=== PATIENT | female | born 1950 | race Caucasian/White ===

== ENCOUNTER 2016-07-21 17:55 | Emergency (ER) | payer OTHER ==
--- NOTE | 2016-07-21 18:29 | EKG Report ---
Test Performed on : 07/21/2016 6:04:50 PM Test Reason : CHEST PRESSURE Blood Pressure : / mmHG Vent. Rate : 061 BPM Atrial Rate : 061 BPM P-R Int : 156 ms QRS Dur : 096 ms QT Int : 448 ms P-R-T Axes : 072 034 051 degrees QTc Int : 450 ms Normal sinus rhythm. Normal ECG No previous ECGs available Unconfirmed Result
--- NOTE | 2016-07-21 18:35 | PROVIDER DOCUMENTATION ---
HPI-Chest Pain <Gypsy Hackett - Last Filed: 07/21/16 19:09> - General Source: patient - History of Present Illness-CP Location: reports: substernal Chest Pain Radiation: reports: no radiation Quality of Pain: reports: pressure Severity in ED: moderate Onset/Duration: 2 days ago Timing: still present, changing over time Context/Activities at Onset: reports: light activity Modifying Factors: worse with: exercise Associated Symptoms: reports: nausea, shortness of breath. denies: dizziness, edema, fever/chills, heartburn, vomiting Nitro Today/Relief: no nitro taken today Aspirin Treatment Today: no aspirin today Prior Chest Pain/Cardiac Workup: reports: cardiolite scan Similar Symptoms Previously?: Yes Recently Seen Here or By Another Healthcare Provider: No <Elder De Anda - Last Filed: 07/21/16 22:47> - General Chief Complaint: Chest Pain Stated Complaint: CHEST PAIN Time Seen by Provider: 07/21/16 18:30 Allergies/Adverse Reactions: Patient Allergies Allergy/AdvReac Type Severity Reaction Status Date / Time Penicillins AdvReac Unknown Verified 07/21/16 18:06 Sulfa (Sulfonamide AdvReac Unknown Verified 07/21/16 18:06 Antibiotics) - History of Present Illness-CP Nature of Presenting Problem: developed retrosternal chest pressure no pain could not get breath no sweating some nausea slept most of the day .went to bed with sx less in am then intensified .had several yrs ago gb gone hx duodenal ulcer sp appy s/p hysterectomy and bso (Elder De Anda) Review of Systems - Adult - REVIEW OF SYSTEMS - ADULT Constitutional: reports: no symptoms reported Eyes: reports: no symptoms reported Ears, Nose, Mouth & Throat: reports: no symptoms reported Cardiovascular: reports: see HPI. denies: edema, heart murmur, irregular heart rate, palpitations, syncope Respiratory: reports: no symptoms reported, shortness of breath. denies: chronic cough, cough, dyspnea on exertion, hemoptysis, pleurisy, wheezing Gastrointestinal: reports: nausea. denies: abdominal pain, constipation, diarrhea, difficulty swallowing, frequent heartburn, rectal bleeding, vomiting Genitourinary: reports: no symptoms reported Musculoskeletal: reports: no symptoms reported Integumentary: reports: no symptoms reported Neurological: reports: no symptoms reported. denies: dizziness/vertigo, headache/migraines, numbness, paresthesia Endocrine: reports: cold intolerance Hematologic/Lymphatic: denies: blood clots, easy bruising, low blood count Allergic/Immunologic: reports: asthma. denies: eczema, hay fever <Elder De Anda - Last Filed: 07/21/16 22:47> Past History - Adult - PAST MEDICAL HISTORY-ADULT Review of Records: reports: Nursing Assessment Review, Medications Reviewed, Social history reviewed & non-contributory. Major Childhood Illnesses: reports: denies history Cardiovascular: reports: pericardial disease. denies: A-Fib, arrhythmia, HTN, heart valve problem Respiratory: reports: asthma, sleep apnea Gastrointestinal: reports: hepatitis, liver disease, pancreatitis. denies: cholelithiasis, Crohn's, diverticulosis Genitourinary: denies: kidney disease, kidney stones, polycystic kidney disease Musculoskeletal: reports: denies history Neurological: reports: denies history Psychiatric: reports: denies history Endocrine/Immune: reports: thyroid disorder <Elder De Anda - Last Filed: 07/21/16 22:47> Physical Exam-General - CONSTITUTIONAL General Appearance: appears well, alert - EYES Eyes: PERRL/EOMI - HEAD, EARS, NOSE, MOUTH & THROAT HENMT: normocephalic/atraumatic - NECK Neck: full range of motion, supple - RESPIRATORY Respiratory: lungs clear - CARDIOVASCULAR Cardiovascular: regular rate, rhythm - GASTROINTESTINAL (ABDOMEN) Abdominal Exam: soft - LYMPHATIC Lymphatic: no adenopathy - MUSCULOSKELETAL Back Exam: normal inspection Extremity: normal range of motion <Elder De Anda - Last Filed: 07/21/16 22:47> Progress - EKG 1 Time of EKG reading by physician:: 18:04 EKG Read and Signed by:: Elder De Anda EKG Interpretation (*Must complete 3 of following elements*): Normal Rate: 61 Rhythm: NSR [place]: normal <Gypsy Hackett - Last Filed: 07/21/16 19:09> Departure <Gypsy Hackett - Last Filed: 07/21/16 19:09> - Departure Time of Disposition Order: 22:46 Certified Medical Emergency: Emergent <Elder De Anda - Last Filed: 07/21/16 22:47> - Departure DIAGNOSIS: Atypical chest pain Disposition: HOME 01 Condition: Stable Additional Instructions: ED Follow Up Instructions: You have been treated by a care provider in the Emergency Department. These instructions are being provided to you so you can have an understanding of how to care for yourself upon discharge. Upon discharge from the Emergency Department, you are responsible for making arrangements for follow-up care by a physician of your choice. Take all prescribed medications as directed. Return to the Emergency Department immediately for any new or worsening symptoms. You may call the Physician Referral phone number at [phone] to obtain a list of Physicians who are taking new patients. Referrals: Duane Cantu MD [Primary Care Provider] - Forms: Return to School/Parent Work Physician Attestation
[2016-07-21] MEDS ORDERED: ASPIRIN ONE (18:55)
[2016-07-21] MEDS ORDERED: ASPIRIN PO ONE (18:58)
[2016-07-21 18:59] LABS: MANUAL DIFF NEEDED? NO
[2016-07-21 19:06] LABS: BASO% 0.2 % (0.0-0.8); EOS% 1.5 % (0.0-10.0); HEMATOCRIT 39.8 % (37.0-47.0); HEMOGLOBIN 13.2 g/dL (12.0-16.0); IMM GRAN# 0.07 X1000 (0.0-0.04); IMM GRAN% 1.1 % (0.0-0.5); LYMPH# 2.57 X1000 (1.2-3.4); LYMPH% 38.7 % (20.5-51.1); MCH 29.7 PG (27-31); MCHC 33.2 g/dL (33-37); MCV 89.6 FL (81-99); MONO# 0.65 X1000 (0.11-0.59); MONO% 9.8 % (1.7-9.3); MPV 11.6 FL (7.4-10.4); NEUT% 48.7 % (42.2-75.2); PLT 175 X1000 (130-400); RBC 4.44 XMIL (4.2-5.4)
[2016-07-21 19:11] LABS: AGAP 11; ALBUMIN 3.8 g/dL (3.5-5.0); ALKALINE PHOSPHATASE 29 U/L (32-104); BUN 16 mg/dL (8-22); CHLORIDE 107 mmol/L (98-107); CK PROFILE 39 U/L (24-173); COSMO 284; GOT 28 U/L (10-30); GPT 41 U/L (10-36); POTASSIUM 4.2 mmol/L (3.5-5.1); SODIUM 141 mmol/L (136-145); TCO2 24 mmol/L (25-35); TOTAL PROTEIN 6.6 g/dL (6.3-8.3)
--- NOTE | 2016-07-21 22:04 | EKG Report ---
Test Performed on : 07/21/2016 9:47:34 PM Test Reason : pain Blood Pressure : / mmHG Vent. Rate : 056 BPM Atrial Rate : 056 BPM P-R Int : 156 ms QRS Dur : 090 ms QT Int : 454 ms P-R-T Axes : 062 008 025 degrees QTc Int : 438 ms Sinus bradycardia. with premature atrial complexes. Low voltage QRS Borderline ECG When compared with ECG of 21-JUL-2016 18:04, (Unconfirmed) premature atrial complexes. are now present Unconfirmed Result
[2016-07-21] MEDS ORDERED: G.I. COCKTAIL PO ONE (22:30)
[2016-07-21 22:33] VITALS: BP 155/75
--- NOTE | 2016-07-22 01:10 | Diag Imaging Result Document ---
PROCEDURE NAME: ANGIOGRAM/PULMONARY ARTERIES - 07/21/2016 STUDY: CT chest with intravenous contrast. No pleural effusions. No thoracic aortic aneurysm or dissection. Normal opacification of the pulmonary arteries and their major branches. There are several calcified mediastinal and hilar lymph nodes with scattered granuloma. No consolidation. No bronchiectasis. IMPRESSION: 1. No pulmonary emboli. 2. No acute pneumonia although there is evidence of a prior granulomatous infection. A preliminary report was given at 8:27 p.m.
--- NOTE | 2016-07-22 07:59 | Diag Imaging Result Document ---
PROCEDURE NAME: CHEST-2 VIEWS - 07/21/2016 FRONTAL AND LATERAL CHEST, TWO VIEWS: FINDINGS: The lungs are well expanded. The heart is not enlarged. The vessels are not distended. No pneumonia. No pleural effusions. No free air beneath the diaphragm. IMPRESSION: No acute abnormality.
== END 2016-07-21 23:06 | disposition home or self-care (01) ==
LOC: P.ED 17:55
DX: R07.89 Other chest pain (principal); R11.0 Nausea; R06.02 Shortness of breath
CPT/HCPCS: 71020; 71275; 80053; 82550; 83880; 84484; 85025; 85379; 93005; Q9967